=== PATIENT | female | born 1985 | race Caucasian/White ===

== ENCOUNTER → 2022-07-10 | Day surgery (SDC) | payer OTHER ==
[~2022-07-10] MED LIST: Lidocaine 1% PF 5 ML VIAL ONE; Sodium Bicarbonate 2.5 MEQ/5 ML VIAL ONE
== END ==
LOC: CSHULT 13:15
PROVIDERS: ATTEND Family Medicine
PROC: 0G9K3ZX Drainage of Thyroid Gland, Percutaneous Approach, Diagnostic (ICD-10-PCS; principal; 2022-07-10)
DX: E07.89 Other specified disorders of thyroid (principal)
CPT/HCPCS: 10005; 88173